=== PATIENT | female | born 1970 ===

== ENCOUNTER 2023-02-12 15:36 | Emergency (ER) | payer BC, SELFPAY ==
[2023-02-12 15:49] VITALS: BP 130/77; PULSE 71; RESP 18; TEMP 36.9; O2SAT 100
[2023-02-12 16:13] VITALS: BP 130/77; PULSE 71; RESP 18; TEMP 36.9; O2SAT 100
--- NOTE | 2023-02-12 16:15 | RT.EKG_ITS ---
APPROVED REPORT Exam: Resting ECG Reason for Exam: chest pain Patient Location: E HR:62 bpm ECG Measurements Heart Rate 62 AXIS SC 204 P 70 QRSd 82 QRS 76 QT 390 T 39 QTc 396 Conclusion Sinus rhythm...normal P axis, V-rate 60- 99 Borderline prolonged SC interval...SC >202, V-rate 50- 90 Probable left atrial enlargement...P >50mS, <-0.10mV V1 Physician: no stemi
[2023-02-12 16:59] LABS: Abs Immature Grans 0.01 10^3/uL (0.0-0.06); Absolute Basophil Count 0.02 10^3/uL (0.0-0.2); Absolute Eosinophil Count 0.16 10^3/uL (0.0-0.7); Absolute Lymphocyte Count 2.46 10^3/uL (1.2-3.4); Absolute Monocyte Count 0.35 10^3/uL (0.1-0.8); Absolute Neutrophil Count 2.86 10^3/uL (1.2-6.7); Basophils % 0.3; Eosinophils % 2.7; HCT 44.3 % (36.0-46.0); Immature Grans % 0.2; MCH 29.2 pg (27.0-33.0); MCHC 31.6 % (32.0-36.0); MCV 93 fL (80-95); Neutrophils % 48.8; RBC 4.79 10^6/uL (3.93-5.22); RDW 11.8 % (11.7-14.6); RDW-SD 39.8 fL; WBC 5.86 10^3/uL (4.4-10.8)
[2023-02-12 17:12] LABS: ALT 22 U/L (14-59); AST 24 U/L (15-37); Albumin 4.6 g/dL (3.4-5.0); Alkaline Phosphatase 92 U/L (46-116); Anion Gap 8.1 mmol/L (3-11); BUN 10 mg/dL (7-18); Bilirubin, Total 0.6 mg/dL (0.2-1.0); CO2 29.9 mmol/L (21.0-32.0); CREATININE 0.8 mg/dL (0.55-1.02); Calcium 9.8 mg/dL (8.5-10.1); Chloride 104 mmol/L (98-107); Glucose 93 mg/dL (74-106); Potassium 4.1 mmol/L (3.5-5.1); Sodium 142 mmol/L (136-145); Total Protein 8.9 g/dL (6.4-8.2); Troponin I < 50 ng/L (<or=60)
[2023-02-12 17:15] LABS: Diff Comment PLT Morph Reviewed; RBC Morphology Normal
[2023-02-12 17:20] LABS: Creatine Kinase 143 U/L (26-192); TSH (W/Ref FT4) 1.33 uIU/mL (0.36-3.74)
[2023-02-12] MEDS: ACETAMINOPHEN 1,000 MG/100 ML BTL 400 MG IVPB (17:20)
[2023-02-12] MEDS: Lactated Ringers 1,000 ML 1000 ML IV (17:21)
[2023-02-12 17:31] LABS: COVID-19 PCR Negative (Negative); Influenza A PCR Negative (Negative); Influenza B PCR Negative (Negative); RSV PCR Negative (Negative)
[2023-02-12 17:32] LABS: Source Nasopharynx
--- NOTE | 2023-02-12 17:45 | DI.CT_ITS ---
Exam(s) CT CAROTID NECK CTA EXAM: CT CAROTID NECK CTA CLINICAL HISTORY: neck pain. TECHNIQUE: Imaging Protocol: Axial CT angiography was performed with multi-slice acquisition and mu lti-planar and/or 3D reconstructions. CONTRAST MATERIAL: Intravenous: Omnipaque 350 Contrast volume:85 mL COMPARISON: No exams were available for comparison FINDINGS: There is patient motion artifact. There is decreased opacification of the distal internal carotid ar teries bilaterally limiting evaluation. CTA Neck W: Common Carotid: Right: No aneurysm, occlusion or significant stenosis. No evidence of dissection. Left: No aneurysm, occlusion or significant stenosis. No evidence of dissection. External Carotid: Right: No aneurysm, occlusion or significant stenosis. Left: No aneurysm, occlusion or significant stenosis. Internal Carotid: Right: No aneurysm, occlusion or significant stenosis. No evidence of dissection seen proximally. Left: No aneurysm, occlusion or significant stenosis. No evidence of a dissection seen proximally. Vertebral Artery: Right: No aneurysm, occlusion or significant stenosis. No evidence of dissection. Left: No aneurysm, occlusion or significant stenosis. No evidence of dissection. Lung Apices: No acute infiltrates or apical pneumothorax. Bones: Within normal limits for the patient's age. Soft Tissues: Normal. IMPRESSION: No evidence of significant stenosis or occlusion of the internal carotid arteries as described above. RADIATION DOSE DELIVERED: Total DLP Total DLP DATA REPOSITORY: All CT scans at this facility are submitted to the National Radiology Data Registry (NRDR) Dose Index Registry (DIR) with the [employer] (ACR). RADIATION OPTIMIZATION: All CT scans at this facility use at least one of these dose optimization te chniques: automated exposure control; mA and/or kV adjustment per patient size (includes targeted exa ms where dose is matched to clinical indication); or iterative reconstruction.
--- NOTE | 2023-02-12 18:10 | DI.CT_ITS ---
Exam(s) CT THORAX CTA EXAM: CT THORAX CTA CLINICAL HISTORY: chest pain. TECHNIQUE: Imaging Protocol: Axial CT angiography was performed with multi-slice acquisition and mu lti-planar and/or 3D reconstructions. CONTRAST MATERIAL: Intravenous: Omnipaque 350 contrast volume:58 mL COMPARISON: CT CT CAROTID NECK CTA from 02/12/2023 FINDINGS: The examination is limited due to patient motion artifact. Tracheobronchial tree: Patent where visualized. Pulmonary parenchyma: No consolidation or dominant measurable mass. Atelectatic changes are seen in t he lung bases. 2.6 cm nodule in the right upper lobe. (Series 6, image 55). Pulmonary Arteries: No pulmonary emboli are seen to the segmental level. Mediastinum and Frieda: No dominant adenopathy or fluid collection. The esophagus is unremarkable. Visualized thyroid gland: Unremarkable. Pleura: No effusion or pneumothorax. Heart: The heart is not dilated. No coronary artery calcifications are seen. No pericardial effusion. Aorta: Thoracic aorta non-dilated. No evidence of dissection. Atherosclerosis is present. Upper abdomen: Unremarkable. Soft tissues: Unremarkable. Bones: Within normal limits for the patient's age. IMPRESSION: 1. No evidence of pulmonary embolism, thoracic aortic dissection or aneurysm. 2. 2.6 cm right upper lobe pulmonary nodule. For patients at low risk, no routine follow-up is recomm ended. For patients at high risk (history of smoking or other known risk factors), consider optional CT scan of the chest at 12 months. (Cirilo et al, 2017). Unexpected findings RADIATION DOSE DELIVERED: Total DLP Total DLP DATA REPOSITORY: All CT scans at this facility are submitted to the National Radiology Data Registry (NRDR) Dose Index Registry (DIR) with the [employer] (ACR). RADIATION OPTIMIZATION: All CT scans at this facility use at least one of these dose optimization te chniques: automated exposure control; mA and/or kV adjustment per patient size (includes targeted exa ms where dose is matched to clinical indication); or iterative reconstruction.
[2023-02-12] MEDS: Normal Saline - Diluent 50 ML VIAL IV (18:21)
[2023-02-12] MEDS: Omnipaque 350 MG/ML 100 ML BTL IJ (18:24)
--- NOTE | 2023-02-12 18:24 | DI.VRAD_ITS ---
PROCEDURE INFORMATION: Exam: CTA Neck With Contrast Exam date and time: 02/12/2023 5:32 PM Age: 52 years old Clinical indication: Other: Neck pain TECHNIQUE: Imaging protocol: Computed tomographic angiography of the neck with contrast. Exam focused on the cervical segments of the vasculature. 3D rendering (Not supervised by radiologist): MIP and/or 3D reconstructed images were created by the technologist. Radiation optimization: All CT scans at this facility use at least one of these dose optimization techniques: automated exposure control; mA and/or kV adjustment per patient size (includes targeted exams where dose is matched to clinical indication); or iterative reconstruction. Contrast material: JACKELYN-PAQUE 350; Contrast volume: 85 ml; Contrast route: INTRAVENOUS (IV); Other contrast: neck pain; COMPARISON: No relevant prior studies available. FINDINGS: Right common carotid artery: No stenosis. No dissection or occlusion. Right internal carotid artery: No stenosis of the extracranial segment. No dissection or occlusion. Right external carotid artery: No occlusion or stenosis of the origin. Left common carotid artery: No stenosis. No dissection or occlusion. Left internal carotid artery: No stenosis of the extracranial segment. No dissection or occlusion. Left external carotid artery: No occlusion or stenosis of the origin. Right vertebral artery: No stenosis. No dissection or occlusion. Left vertebral artery: No stenosis. No dissection or occlusion. Soft tissues: Normal. No significant soft tissue swelling. Bones/joints: No acute fracture. IMPRESSION: No evidence of 50% or greater stenosis involving the cervical segments of the right or left internal carotid arteries by NASCET criteria. REFERENCES: NASCET CRITERIA. The degree of stenosis in the cervical segment of the internal carotid artery is based on NASCET criteria. Normal is no stenosis. Mild is less than 50% stenosis. Moderate is 50-69% stenosis. Severe is 70% to 99% stenosis. Total occlusion is no detectable patent lumen. Dictated and Authenticated by: Fadi Owusu MD. Ordering:TIM Guerra MD
[2023-02-12] MEDS: Omnipaque 350 MG/ML 50 ML BTL IJ (18:26)
--- NOTE | 2023-02-12 18:56 | ED.GENADUL_ITS ---
Discharge Plan Disposition Patient Disposition: Home Discharge Details Clinical Impression: Neck pain Primary Care Provider: Unknown,Unknown ED Provider: Mari Madrigal Home Meds and New Rx's Prescriptions: New cyclobenzaprine 10 mg tablet 10 mg PO Q8H Qty: 10 0RF Discharge Instructions Instructions: Neck Pain (ED) Additional Instructions: All of your tests are reassuring Take ibuprofen 600 mg every 8 hours with food, Tylenol 650 mg every 4-6 hours for breakthrough pain and Flexeril 10 5 to 10 mg every 8 hours as needed for musculoskeletal pain You have a lung nodule, please follow-up with your doctor regarding this it is 2 x 3 mm in the right upper lobe Return should you develop fever, chills, headache, dizziness, stiff neck, or with any new or worsening complaints Warm compresses to affected area Medical Decision Making 52-year-old female in no acute distress Presenting with vague throat and chest discomfort with back discomfort, given age and complaints, CTA chest and neck were ordered which did not show evidence of dissection pneumomediastinum or any other acute pathology including dissection, distal pulses are intact, afebrile and nontoxic, labs reassuring EKG and troponin negative, single troponin as patient has had symptoms since early this morning greater than 6 hours Feeling some mild improvement, will give muscle relaxants as I suspect this is musculoskeletal in nature as recent excluded more ominous pathologies Ibuprofen and Tylenol encouraged Recheck in 2 to 3 days recommended Return precautions reviewed and patient expressed understanding. HPI General Date/Time Provider Initiated Documentation: 02/12/23 16:01 . HPI Narrative: This 52-year-old female presents with back pain and neck pain started this morning. Feels like she cannot hold her head up per patient. Denies stiff neck or headache. Denies vision change. Denies any chest pain or shortness of breath. Denies any dizziness or weakness. Open the garage door this morning but denies any additional known potential injuries. Denies any weakness to her extremities or paresthesias. Denies chance of . Related Data Home Medications Medication Instructions Recorded Confirmed cyclobenzaprine 10 mg tablet 10 mg PO Q8H #10 tabs 02/12/23 Previous Rx's Medication Instructions Recorded cyclobenzaprine 10 mg tablet 10 mg PO Q8H #10 tabs 02/12/23 Allergies Allergy/AdvReac Type Severity Reaction Status Date / Time Unable to Assess Allergy Unverified 02/12/23 16:14 General Stated Complaint: Sorethroat ALE: 4 PFSH All Active Problems (Updated 02/12/23 @ 19:46 by LYNDSEY Kellogg) Neck pain (Acute) Social History Smoking/Tobacco Use Status: Never Smoking risk assessment performed?: Yes Alcohol Intake: current Alcohol Intake frequency: a few times a month Alcohol type: wine Drug use: Never Substance use type: does not use Do you feel safe at home: Yes Do you feel safe in your relationship?: Yes Course Vital Signs Vital signs: Vital Signs Temperature 36.9 C 02/12/23 15:49 Pulse 71 02/12/23 15:49 Respiratory Rate 18 02/12/23 15:49 Blood Pressure 130/77 02/12/23 15:49 Pulse Oximetry 100 02/12/23 15:49 Temperature 36.9 C 02/12/23 16:13 Temperature Source Tympanic 02/12/23 16:13 Pulse 71 02/12/23 16:13 Respiratory Rate 18 02/12/23 16:13 Respiratory Effort Normal, Non-Labored 02/12/23 16:14 Blood Pressure 130/77 02/12/23 16:13 Blood Pressure Position Sitting 02/12/23 16:13 Pulse Oximetry 100 02/12/23 16:13 Oxygen Delivery Method Room Air 02/12/23 16:13 Oxygen Flow Rate 0 02/12/23 15:49 Pain Level 9 02/12/23 16:13 Lab/Test Results Lab/Test Results: Laboratory Tests Range/Units 02/12/23 02/12/23 16:41 16:45 WBC (4.4-10.8) 10^3/uL 5.86 RBC (3.93-5.22) 10^6/uL 4.79 Hgb (11.2-15.7) g/dL 14.0 Hct (36.0-46.0) % 44.3 MCV (80-95) fL 93 MCH (27.0-33.0) pg 29.2 MCHC (32.0-36.0) % 31.6 L RDW (11.7-14.6) % 11.8 Plt Count (130-400) 10^3/uL MPV (8.0-11.0) fL Immature Gran % 0.2 Neutrophils % 48.8 Lymphocytes % 42.0 Monocytes % 6.0 Eosinophils % 2.7 Basophils % 0.3 Nucleated RBC % (0.0-0.3) % 0.0 Absolute Neutrophils (1.2-6.7) 10^3/uL 2.86 Absolute Lymphocytes (1.2-3.4) 10^3/uL 2.46 Absolute Monocytes (0.1-0.8) 10^3/uL 0.35 Absolute Eosinophils (0.0-0.7) 10^3/uL 0.16 Absolute Basophils (0.0-0.2) 10^3/uL 0.02 RBC Morphology Normal Sodium (136-145) mmol/L 142 Potassium (3.5-5.1) mmol/L 4.1 Chloride (98-107) mmol/L 104 Carbon Dioxide (21.0-32.0) mmol/L 29.9 Anion Gap (3-11) mmol/L 8.1 BUN (7-18) mg/dL 10 Creatinine (0.55-1.02) mg/dL 0.8 Est GFR (CKD-EPI 2020) (mL/min/1.73m2) 87.50 Glucose (74-106) mg/dL 93 Calcium (8.5-10.1) mg/dL 9.8 Total Bilirubin (0.2-1.0) mg/dL 0.6 AST (15-37) U/L 24 ALT (14-59) U/L 22 Alkaline Phosphatase (46-116) U/L 92 Creatine Kinase (26-192) U/L 143 Troponin I (<or=60) ng/L < 50 Total Protein (6.4-8.2) g/dL 8.9 H Albumin (3.4-5.0) g/dL 4.6 TSH (0.36-3.74) uIU/mL 1.33 COVID-19 Source Nasopharynx SARS-CoV-2 (PCR) (Negative) Negative Influenza Type A (PCR) (Negative) Negative Influenza Type B (PCR) (Negative) Negative RSV (PCR) (Negative) Negative PAWSS Have you Been Recently Intoxicated or Drunk Within the Last 30 days?: No Have you Ever Experienced Previous Episodes of Alcohol Withdrawal?: No Have you ever Experienced Withdrawal Seizures?: No Have you ever Experienced Delirium Tremens(DT)s?: No Have you ever undergone Alcohol Rehabilitation Treatment (i.e, inpt ot outpatient treatment programs)?: No Have you ever Experienced Blackouts?: No Have you ever Combined Alcohol with other Downers within the last 90 days?: No Have you ever Combined Alcohol with any other Substance of Abuse during the last 90 days?: No Positive Blood Alcohol level on Presentation? [PCS.BAL]: No Evidence of Increased Autonomic Activity (i.e. HR>120, tremor, sweating, agitation, nausea)?: No Result: 0
--- NOTE | 2023-02-12 19:17 | DI.VRAD_ITS ---
PROCEDURE INFORMATION: Exam: CTA Chest With Contrast Exam date and time: 02/12/2023 5:58 PM Age: 52 years old Clinical indication: Angina pectoris; Patient HX: Chest pain. TECHNIQUE: Imaging protocol: Computed tomographic angiography of the chest with contrast. Exam focused on the arteries. 3D rendering (Not supervised by radiologist): MIP and/or 3D reconstructed images were created by the technologist. Radiation optimization: All CT scans at this facility use at least one of these dose optimization techniques: automated exposure control; mA and/or kV adjustment per patient size (includes targeted exams where dose is matched to clinical indication); or iterative reconstruction. Contrast material: OMNI-PAQUE 350; Contrast volume: 58 ml; Contrast route: INTRAVENOUS (IV); COMPARISON: None. FINDINGS: Pulmonary arteries: No filling defects within the pulmonary arteries are identified to suggest pulmonary embolism. Aorta: Unremarkable. No aortic aneurysm. No aortic dissection. Lungs: There are regions of mild subsegmental atelectasis within the lung bases. There is a 2 x 3 mm right upper lobe nodule on image 55, series 6. Pleural spaces: There are no pleural effusions present. There is no evidence of pneumothorax. Heart: Heart size is within normal limits. There is no pericardial effusion. No coronary artery calcification is identified. Lymph nodes: There is no evidence of lymphadenopathy. Bones/joints: Unremarkable. No acute fracture. Soft tissues: Unremarkable. IMPRESSION: 1. No pulmonary embolism identified. 2. No active cardiopulmonary disease identified. 3. 2 x 3 mm right upper lobe nodule, indeterminate. For patients at low risk (minimal or absent history of smoking and of other known risk factors), no routine follow-up is indicated. For patients at high risk (history of smoking or of other known risk factors), consider optional CT Chest at 12 months. (Reference: Chriss) REFERENCES: Chriss Mansfield, et al. Guidelines for Management of Incidental Pulmonary Nodules Detected on CT Images: From the Fleischner Society 2017. Radiology. 2017;284(1):228-243. Dictated and Authenticated by: Mehran Earl MD. Ordering:TIM Guerra MD
[2023-02-12] MEDS: Cyclobenzaprine 10 MG TAB, 3 TABS/BTL PO (19:55)
[2023-02-12 19:58] VITALS: BP 151/83; PULSE 63; RESP 16; TEMP 36.8; O2SAT 100
== END 2023-02-12 20:27 | disposition home or self-care (01) ==
PROVIDERS: Emergency Provider Physician Assistant
DX: R13.10 Dysphagia, unspecified (principal); M54.2 Cervicalgia; R91.1 Solitary pulmonary nodule; R94.31 Abnormal electrocardiogram [ECG] [EKG]; Z11.52 Encounter for screening for COVID-19
CPT/HCPCS: 70498; 71275; 80053; 82550; 87637; 93005; 96361; 96374; 99285; 84443; 84484; 85025; 93010; 99284; J0131; J3490; Q9967